=== PATIENT | male | born 1995 | race Caucasian/White ===

== ENCOUNTER 2017-03-24 21:34 | Emergency (ER) | payer OTHER ==
[2017-03-24] MEDS ORDERED: methylPREDNISolone ACETATE 80 MG/ML VIAL IM ONE (22:00)
[2017-03-24] MEDS: methylPREDNISolone ACETATE 80 MG/ML VIAL IM STA (22:03)
--- NOTE | 2017-03-24 22:08 | ED Physician Documentation ---
Hand Injury - HISTORIAN Historian: patient, friend - [facility] Stated Complaint: INSECT STING Chief Complaint: Hand Injury Additional Information: working on [employer] bee sting base lt mid finger med aspect-surrounding swelling redness appros 3" diameter-no present systemic reaction Onset: hours (1944) Where: home Severity: mild Further Comments: yes (pt denies resp or systemic involvement just parrish and hurts at site) - ROS CONST: no problems GI/: nausea, vomiting NEURO: headache, fainting CVS/RESP: chest pain, shortness of breath MS/SKIN/LYMPH: none - PAST HX Past History: none Allergies/Adverse Reactions: Allergies Allergy/AdvReac Type Severity Reaction Status Date / Time No Known Allergies Allergy Verified 03/24/17 21:57 Home Medications: Ambulatory Orders Medication Instructions Recorded NK [NK] 09/24/16 - SOCIAL HX Smoking History: non-smoker Alcohol Use: none Drug Use: none - FAMILY HX Family History: no significant history - VITAL SIGNS Vital Signs: Vital Signs Temp Pulse Resp BP Pulse Ox 98.1 F 76 18 145/92 100 03/24/17 21:34 03/24/17 21:34 03/24/17 21:34 03/24/17 21:34 03/24/17 21:34 - REVIEWED ASSESSMENTS Nursing Assessment Reviewed: Yes Vitals Reviewed: Yes ED Results Lab/Radiology - Orders Orders: ED Orders Category Date Time Status methylPREDNISolone ACETATE [Depo-Medrol] Med 03/24/17 22:00 Discontinued 80 mg IM .STK-MED ONE methylPREDNISolone ACETATE [Depo-Medrol] Med 03/24/17 22:00 Stat 80 mg IM NOW STA Hand Injury Physical Exam - Exam General Appearance: mild distress Hand: swelling Wrist: normal inspection Neuro: sensation nml Vascular: no vascular compromise Tendons: tendon function nml Forearm/Elbow/Arm: uninjured above wrist Head/ENT: nml inspection Neck/Back: nml inspection Resp/CVS: chest non-tender, breath sounds nml, heart sounds nml, no resp. distress, lungs clear, reg. rate & rhythm Abdomen: non-tender Discharge Clincal Impression: Bee sting Referrals: Faiza Jordan MD [Primary Care Provider] - 2 Days Home Medications: Ambulatory Orders NK [NK] 09/24/16 Disposition: 01 HOME, SELF-CARE Decision to Admit: NO Decision Time: 22:08
[2017-03-24 22:40] VITALS: BP 139/82
== END 2017-03-24 22:25 | disposition home or self-care (01) ==
LOC: ED 21:34
DX: T63.441A Toxic effect of venom of bees, accidental (unintentional), initial encounter (principal); X58.XXXA Exposure to other specified factors, initial encounter; Y93.9 Activity, unspecified; Y99.9 Unspecified external cause status
CPT/HCPCS: 96372; 99283; J1040